=== PATIENT | male | born 1995 | race Caucasian/White ===

== ENCOUNTER 2020-07-11 19:21 | Emergency (ER) | payer OTHER ==
[~2020-07-11 19:21] MED LIST: BROMFED DM COU473 ML PO; IBUPROFEN800 MG PO; PERCOCET 5-3251 EACH PO; PREDNISONE 20MG20 MG PO; VENTOLIN HFA IN18 GM INH; ZPAK PO
[2020-07-11] MEDS ORDERED: HYDROXYZINE 10M10 MG PO (21:01)
[2020-07-11] MEDS ORDERED: BACTROBAN NASAL1 GM (21:01)
[2020-07-11] MEDS ORDERED: TRIAMCINOLONE 080 GM TOP (21:01)
== END 2020-07-11 21:10 | disposition home or self-care (01) ==
LOC: FER 19:21
DX: L25.9 Unspecified contact dermatitis, unspecified cause (principal); L01.00 Impetigo, unspecified; R60.0 Localized edema; F17.200 Nicotine dependence, unspecified, uncomplicated
CPT/HCPCS: 99283; J7512